=== PATIENT | male | born 1955 | race African-American/Black ===

== ENCOUNTER 2019-08-05 00:15 | Emergency (ER) | payer OTHER, SELFPAY ==
--- NOTE | 2019-08-05 00:17 | ED.ABDPAIN ---
HPI - Abdominal Pain General Chief Complaint: Abdominal Pain Stated Complaint: intermittent right upper quadrant pain/chills Time Seen by Provider: 08/05/19 00:17 Source: patient and family Mode of arrival: Wheelchair Limitations: no limitations History of Present Illness HPI narrative: 63-year-old male nonsmoker with history of diabetes and hypertension presents with his in the chief complaint of episodes of worsening right upper quadrant pain. He states that the episodes last upwards of 1 to minutes and are without provocation or palliation. He had been having some diarrhea last week but then has been constipated for the past day or 2. He did have a bowel movement this morning but states it was very hard and a small amount. He has had no nausea, vomiting. He has had no fever or chills. He denies runny nose, sore throat or cough. He has no chest pain, shortness of breath or weakness. MD complaint: abdominal pain Onset (ago): day(s) Pain Consistency: intermittent Location: RUQ Severity: moderate Quality: cramping Radiation: none Relieving factors: nothing Exacerbating factors: nothing Associated symptoms: denies other symptoms Related Data Previous Rx's Medication Instructions Recorded azithromycin [Zithromax] 250 mg PO Q DAY #6 tab 04/03/16 hyoscyamine sulfate 0.125 mg PO BID-QID PRN #20 tab 08/05/19 Allergies Allergy/AdvReac Type Severity Reaction Status Date / Time lisinopril Allergy Severe Anaphylaxis Verified 08/05/19 00:33 Penicillins [PENICILLINS] Allergy Intermediate TREMORS Unverified 09/06/17 12:17 Review of Systems Constitutional Constitutional: Denies chills, Denies fatigue, Denies fever(s), Denies frequent falls, Denies lethargy and Denies weakness Eyes Eyes: Denies change in vision, Denies eye discharge, Denies irritation and Denies loss of vision ENT Ears, Nose, Mouth, and Throat: Denies change in voice, Denies dizziness, Denies neck pain, Denies sore throat and Denies throat swelling Cardiovascular Cardiovascular: Denies chest pain, Denies irregular heart rhythm, Denies lightheadedness, Denies palpitations, Denies dyspnea, Denies dyspnea on exertion and Denies orthopnea Respiratory Respiratory: Denies cough, Denies dyspnea, Denies dyspnea on exertion and Denies wheezing Gastrointestinal Gastrointestinal: Reports abdominal pain, Reports change in bowel habits, Denies diarrhea, Denies nausea and Denies vomiting Genitourinary Genitourinary: Denies hematuria, Denies flank pain, Denies urinary incontinence and Denies urinary urgency Musculoskeletal Musculoskeletal: Denies back pain, Denies muscle weakness, Denies neck pain, Denies numbness and Denies tingling Integumentary/Breasts Skin/Breast: Denies pruritus, Denies erythema, Denies rash and Denies wounds Neurologic Neurologic: Denies behavioral changes, Denies confusion, Denies dizziness, Denies frequent falls, Denies loss of vision, Denies numbness, Denies tingling and Denies weakness Psychiatric Psychiatric: Denies anxiety, Denies behavioral changes, Denies confusion, Denies depression, Denies homicidal ideation and Denies suicidal ideation Endocrine Endocrine: Denies fatigue, Denies flushing and Denies palpitations Hematologic/Lymphatic Hematologic/Lymphatic: Denies easy bruising Allergic/Immunologic Allergic/Immunologic: Denies urticaria, Denies throat swelling and Denies wheezing Patient History Social History Smoking Status: Never smoker Smoking Status: Never smoker Substance Use Type: does not use Exam Narrative Exam Narrative: GENERAL: [63] year old patient appears stated age. Well-nourished, well-developed patient, in mild distress. HEAD: Atraumatic. Normocephalic. EYES: Pupils equal round and reactive. Extraocular motions intact. No scleral icterus. No injection or drainage. ENT: Nose without bleeding, purulent drainage. Throat without erythema, tonsillar hypertrophy or exudate. Airway patent. NECK: Trachea midline. Non tender CARDIOVASCULAR: Regular rate and rhythm without murmurs, gallops, or rubs. RESPIRATORY: Clear to auscultation. Breath sounds equal bilaterally. No wheezes, rales, or rhonchi. GASTROINTESTINAL: Abdomen soft, non-tender, nondistended. EXTREMITIES: No edema or joint tenderness. BACK: Nontender without deformity or crepitance. No flank tenderness. NEURO: AOx3. SKIN: No rash or erythema of visible areas Initial Vital Signs Initial Vital Signs: Vital Signs Pulse Rate 82 08/05/19 00:26 Respiratory Rate 18 08/05/19 00:26 Blood Pressure 156/89 H 08/05/19 00:26 Pulse Oximetry 100 08/05/19 00:26 Course Orders Ordered: ED Orders 08/05/19 00:27 XR acute abdomen series Stat 08/05/19 00:33 Complete Blood Count AUTO DIFF Stat Comprehensive Metabolic Panel Stat Lipase Stat 08/05/19 01:14 CT abdomen pelvis w con Stat 08/05/19 02:21 US abdomen limited Stat Sodium Chloride (Normal Saline 0.9%) 1,000 mls @ 150 mls/hr IV CONT VISHNU Last Admin: 08/05/19 00:56 Dose: 150 mls/hr Documented by: REMIGIO Vital Signs Vital signs: Vital Signs - 8 hr 08/05/19 00:26 08/05/19 00:28 08/05/19 02:04 Temperature 97.6 F Pulse Rate 82 70 Respiratory Rate 18 15 Blood Pressure 156/89 H Blood Pressure [Left Arm] 132/88 Pulse Oximetry 100 97 MDM - Abdominal Pain Lab Data Result diagrams: 08/05/19 00:33 08/05/19 00:33 Labs: Lab Results 08/05/19 08/05/19 Range/Units 00:33 00:33 WBC 8.0 (4.5-11.0) X10^3/uL RBC 4.68 (4.5-5.9) X10^6/uL Hgb 12.1 L (13.5-17.5) g/dL Hct 37.0 L (41-53) % MCV 79.2 L (80-100) fL MCH 25.9 L (26-34) PG MCHC 32.7 (30-36) % RDW 17.5 H (11.6-14.8) % Plt Count 223 (150-400) X10^3/uL Neut % (Auto) 63.1 (50-75) % Lymph % (Auto) 27.2 (25-40) % [place] % (Auto) 7.0 (3-14) % Eos % (Auto) 2.0 (2-4) % Baso % (Auto) 0.7 (0-2) % Neut # (Auto) 5000 (1635-5420) /uL Lymph # (Auto) 2200 (6236-3612) /uL [place] # (Auto) 600 (0-900) /uL Eos # (Auto) 200 (0-450) /uL Baso # (Auto) 100 (0-100) /uL Sodium 139 (137-145) mmol/L Potassium 4.5 (3.4-5.1) mmol/L Chloride 103 (98-107) mmol/L Carbon Dioxide 29 (22-32) mmol/L BUN 14 (9-20) mg/dL Creatinine 1.40 H (0.66-1.25) mg/dL Estimated GFR 51.2 L (>60) mL/min BUN/Creatinine Ratio 10.0 (6-22) Glucose 136 H (80-110) mg/dL Calcium 10.0 (8.4-10.2) mg/dL Total Bilirubin 1.0 (0.2-1.3) mg/dL AST 81 H (17-59) IU/L ALT 70 H (<50) IU/L Alkaline Phosphatase 80 (38-126) U/L Total Protein 8.8 H (6.3-8.2) g/dL Albumin 4.5 (3.5-5.0) g/dL Globulin 4.3 H (1.7-4.1) g/dL Albumin/Globulin Ratio 1.0 (1.0-2.8) Lipase 232 (23-300) U/L Point of care testing: Urine Dip Bedside Urine Glucose Negative Bedside Urine Bilirubin - Negative Bedside Urine Ketone - Negative Urine Specific [place] 1.005 Bedside Urine Occult Blood - Negative Bedside Urine pH 7.5 Bedside Urine Protein +/- 15 Bedside Urine Urobilinogen +/- 1mg Bedside Urine Nitrite - Negative Bedside Urine Leukocytes - Negative Esterase Imaging Data Abdominal x-ray: Attestation: I personally reviewed and interpreted this imaging study as follows: My Impression: large stool burden in R abdomen and nonspecific bowel gas in left abdomen CT scan - abdomen/pelvis: Radiologist's Impression: Slight thickening of the urinary bladder Mild to moderate fecal retention Fluid-filled small bowel loops with slightly thickened wall at upper diameter but no onur distension may be related to slight enteritis US - abdomen: Radiologist's Impression: Contracted gallbladder, no stones MDM Narrative Medical decision making narrative: Patient with colicky type right-sided abdominal pain and recent history of diarrhea and now constipation. X-rays suggest large stool burden. CT shows no obstruction but suggestion of enteritis. Gallbladder ultrasound shows no surgical findings. Labs are very reassuring. Patient feels tremendous relief after the above-stated therapies Patient given return precautions and has had his questions answered to his apparent satisfaction Discharge Plan Departure Patient Disposition: Home Clinical Impression: Enteritis Abdominal pain Qualifiers: Abdominal location: right upper quadrant Qualified Code(s): R10.11 - Right upper quadrant pain Instructions: DI for Abdominal Pain-Adult Activity Restrictions/Additional Instructions: 1. Drink plenty of fluids with frequent small sips. 2. For the next 24 hours a clear liquid diet is advised. After that please employ a brat diet which would include bananas, rice, apples, toast. 3. Please take medications as directed. 4. Please follow-up with your doctor in the next 1-2 days. Call the office for an appointment. 5. Please return to the emergency Department for any worsening or persistent symptoms, such as increasing pain or fever. Prescriptions: New hyoscyamine sulfate 0.125 mg tablet 0.125 mg PO BID-QID PRN (Reason: dyspepsia) Qty: 20 RF: 0 No Action azithromycin [Zithromax] 250 MG tablet 250 mg PO Q DAY Qty: 6 RF: 0 Referrals: Marta Austin [Primary Care Provider] -
[2019-08-05 00:26] VITALS: BP 156/89; PULSE 82; RESP 18; O2SAT 100; BMI 31.7
--- NOTE | 2019-08-05 00:27 | DI.RAD.S_ITS ---
PROCEDURE: XR ACUTE ABDOMEN SERIES INDICATIONS: Abdominal pain TECHNIQUE: One view chest and two views of the abdomen were acquired. COMPARISON: [facility], CT, CT ABDOMEN PELVIS W CON, 08/05/2019, 0:20. FINDINGS: Surgical changes and devices: None. Chest: Lungs are clear. Heart size is normal. No pleural effusions. No pneumoperitoneum. Abdomen: Bowel gas pattern is mildly abnormal, with a small bowel loop over the left midabdomen showing gas distention to the degree that ileus or obstruction could explain appearance. No suspicious calcifications. Visualized solid organ contours appear normal. Bones: No suspicious bony lesions. IMPRESSION: Suspect small bowel ileus or obstruction, early, as cause of small bowel prominence over the left midabdomen. Please also refer to CT report from same date. Dictated by: Phillip Epstein M.D. on 08/05/2019 at 8:24 Approved by: Phillip Epstein M.D. on 08/05/2019 at 8:26
[2019-08-05 00:28] VITALS: TEMP 36.4
[2019-08-05 00:47] LABS: Add Manual Diff / Slide Review NO; Basophils Absolute Auto 100 /uL (0-100); Basophils Percent Auto 0.7 % (0-2); Eosinophils Absolute Auto 200 /uL (0-450); Hemoglobin 12.1 g/dL (13.5-17.5); Lymphocytes Absolute Auto 2200 /uL (1100-4500); Lymphocytes Percent Auto 27.2 % (25-40); Mean Corpuscular HGB Conc 32.7 % (30-36); Mean Corpuscular Hemoglobin 25.9 PG (26-34); Mean Corpuscular Volume 79.2 fL (80-100); Monocytes Absolute Auto 600 /uL (0-900); Neutrophils Absolute Auto 5000 /uL (1500-7000); Neutrophils Percent Auto 63.1 % (50-75); Platelet Count 223 X10^3/uL (150-400); Red Blood Cell Count 4.68 X10^6/uL (4.5-5.9); Red Cell Distribution Width 17.5 % (11.6-14.8)
[2019-08-05 00:56] LABS: Alanine Aminotransferase 70 IU/L (<50); Albumin 4.5 g/dL (3.5-5.0); Alkaline Phosphatase 80 U/L (38-126); Aspartate Aminotransferase 81 IU/L (17-59); Blood Urea Nitrogen 14 mg/dL (9-20); Carbon Dioxide 29 mmol/L (22-32); Chloride 103 mmol/L (98-107); Estimated Glomerular Filt Rate 51.2 mL/min (>60); Globulin 4.3 g/dL (1.7-4.1); Glucose 136 mg/dL (80-110); HEMOLYSIS < 15 (0-50); Lipase 232 U/L (23-300); Potassium 4.5 mmol/L (3.4-5.1); Sodium 139 mmol/L (137-145); Total Protein 8.8 g/dL (6.3-8.2)
[2019-08-05] MEDS: SODIUM CHLORIDE 0.9% 1,000 ML 150 ML IV (00:56)
--- NOTE | 2019-08-05 01:14 | DI.CT.S_ITS ---
PROCEDURE: CT ABDOMEN PELVIS W CON INDICATIONS: abdominal pain, N/V, no BM TECHNIQUE: After the administration of intravenous contrast, 5 mm thick sections acquired from the diaphragm to the symphysis. 5 mm coronal and sagittal reformats were acquired. For radiation dose reduction, the following was used: automated exposure control, adjustment of mA and/or kV according to patient size. COMPARISON: None. FINDINGS: Image quality: Excellent. ABDOMEN: Lung bases: Lung bases are clear. Heart size is normal. Solid organs: Liver is normal in size and enhancement. Gallbladder is unremarkable. Biliary system is non dilated. Pancreas enhances normally. Spleen is normal in size and enhancement. No adrenal nodules. Kidneys demonstrate normal size and enhancement, without hydronephrosis. Peritoneum and bowel: The proximal small bowel loops are in general prominent and fluid-filled. There is a small bowel loop that measures up to 3.1 cm. Distal small bowel is normal caliber. Findings may potentially represent a partial small bowel obstruction. Normal appendix. Colon is unremarkable. No free air, free fluid, or abscess cavity. Nodes and vessels: No retroperitoneal or mesenteric adenopathy by size criteria. Aorta and inferior vena cava are normal in size. Miscellaneous: No ventral hernias. PELVIS: Genitourinary: Mild diffuse bladder wall thickening. Miscellaneous: No inguinal hernias or adenopathy. Bones: No suspicious bony lesions. No vertebral body compression fractures. IMPRESSION: 1. Question partial small bowel obstruction versus finding secondary to gastroenteritis. Comment: Preliminary preliminary interpretation provided by [facility]. Dictated by: Grupo Lewis M.D. on 08/05/2019 at 7:47 Approved by: Grupo Lewis M.D. on 08/05/2019 at 7:56
[2019-08-05 02:04] VITALS: BP 132/88; PULSE 70; RESP 15; O2SAT 97
--- NOTE | 2019-08-05 02:21 | DI.US.S_ITS ---
PROCEDURE: US ABDOMEN LIMITED INDICATIONS: RUQ PAIN, ELEVATED LFTS,THICKENED GB WALL ON CT TECHNIQUE: Real-time focused scanning was performed of the abdomen, with image documentation. COMPARISON: None. FINDINGS: The liver is enlarged in size at 20.3 cm craniocaudad. It is fatty infiltrated as indicated by generalized increased echotexture. No intrahepatic biliary distention is present. The gallbladder appears normal, and is mildly contracted. The common duct measures 5 mm. IMPRESSION: Hepatomegaly with moderate hepatic steatosis, no sign of acute cholecystitis or biliary obstruction. Dictated by: Phillip Epstein M.D. on 08/05/2019 at 8:26 Approved by: Phillip Epstein M.D. on 08/05/2019 at 8:28
== END 2019-08-05 04:05 | disposition home or self-care (01) ==
PROVIDERS: Emergency Provider Emergency Medicine; PCP Internal Medicine
DX: K52.9 Noninfective gastroenteritis and colitis, unspecified (principal); R10.11 Right upper quadrant pain; E11.9 Type 2 diabetes mellitus without complications; I10 Essential (primary) hypertension
CPT/HCPCS: 36415; 74022; 74177; 76705; 80053; 81003; 83690; 85025; 96360; 96361; 99284; 99285; Q9967

== ENCOUNTER → 2022-07-25 12:10 | Outpatient (CLI) | payer MEDICARE, OTHER, SELFPAY ==
--- NOTE | 2022-07-25 | DI.RAD.S_ITS ---
PROCEDURE: XR ELBOW LT MIN 3V INDICATIONS: Other specified arthritis, left elbow TECHNIQUE: 3 views of the elbow were acquired. COMPARISON: None. FINDINGS: Bones: No acute fractures or dislocations. No suspicious bony lesions. Joint space narrowing present of the radiocapitellar and ulnar trochlear articulations. Subchondral cystic change and spurring also likely demonstrated. Soft tissues: No elbow joint effusion. No suspicious soft tissue calcifications. IMPRESSION: Degenerative changes of the left elbow. No acute fracture identified. If symptoms persist, follow-up radiographs and/or CT or MRI may be helpful for further evaluation. Dictated by: Terrence Nicolas M.D. on 07/25/2022 at 15:30 Approved by: Terrence Nicolas M.D. on 07/25/2022 at 15:35
== END ==
PROVIDERS: PCP Family Medicine; Referring Provider Family Medicine; Visit Provider Family Medicine
DX: M13.822 Other specified arthritis, left elbow (principal)
CPT/HCPCS: 73080

== ENCOUNTER → 2023-06-26 09:04 | Outpatient (CLI) | payer MEDICARE, OTHER, SELFPAY ==
--- NOTE | 2023-06-26 09:06 | DI.US.S_ITS ---
PROCEDURE: US ABDOMEN LIMITED INDICATIONS: Abnormal levels of other serum enzymes TECHNIQUE: Real-time scanning was performed of the abdominal and retroperitoneal organs, with image documentation. COMPARISON: [facility], , US ABDOMEN LIMITED, 08/05/2019, 1:58. FINDINGS: Liver: Measures 17.8 cm in length. Upper limits of normal in size. Increased in echogenicity. Portal vein demonstrates hepatopetal flow. Gallbladder: Nondilated. No stones or sludge. Normal gallbladder wall thickness. No pericholecystic fluid. Negative sonographic Cm's sign. Biliary ducts: Intrahepatic bile ducts are non-dilated. Extrahepatic bile duct caliber measures 5 mm. Normal is 6-7 mm or less in diameter, or 10 mm or less post-cholecystectomy. Pancreas: Visualized portions of the pancreas are sonographically normal. Tail is not well seen due to bowel gas. Right kidney: No hydronephrosis. Measures 12.6 cm in length. Miscellaneous: No free abdominal fluid. IMPRESSION: 1. Increased hepatic echogenicity most consistent with hepatic steatosis. Other forms of hepatocellular disease could have similar appearance. 2. No acute cholecystitis. No gallstones. Dictated by: Jaime Alaniz M.D. on 06/26/2023 at 11:37 Approved by: Jaime Alaniz M.D. on 06/26/2023 at 11:41
== END ==
PROVIDERS: PCP Family Medicine; Referring Provider Nurse Practitioner Family; Visit Provider Nurse Practitioner Family
DX: R74.8 Abnormal levels of other serum enzymes (principal)
CPT/HCPCS: 76705

== ENCOUNTER → 2023-08-14 14:52 | Outpatient (CLI) | payer MEDICARE, OTHER, SELFPAY ==
--- NOTE | 2023-08-14 | DI.NM.S_ITS ---
PROCEDURE: NM EXERCISE TREADMILL NON NUC COMPARISON: None. INDICATIONS: Chest pain FINDINGS: Total exercise time was 6 minutes and 1 seconds. 6.9 METS was obtained. Maximum heart rate was 165 bpm which is 108% of maximum predicted heart rate. Maximum blood pressure was 200/100 resulting in a hypertensive response to exercise. Double product was [id number]. Occasional PVCs were noted at the beginning of the stress portion but resolved with higher levels of stress. No dysrhythmias were noted no ectopic beats present in the rest phase. Upsloping ST depression present at peak stress. No chest pain nor anginal symptoms voiced. Test was terminated secondary to fatigue. IMPRESSION: 1. No ischemia noted on this exercise treadmill stress test. 2. Average exercise tolerance. 3. Hypertensive response to exercise. Dictated by: Murtaza Lopez M.D. on 08/15/2023 at 13:01 Approved by: Murtaza Lopez M.D. on 08/15/2023 at 13:04
--- NOTE | 2023-08-14 | DI.RAD.S_ITS ---
PROCEDURE: XR CHEST 2V INDICATIONS: Chest pain TECHNIQUE: 2 views of the chest were acquired. COMPARISON: [facility], , CHEST 2 VIEW, 04/03/2016, 9:29. FINDINGS: Surgical changes and devices: Surgical anchors are seen in the right humeral head. Lungs and pleura: Lungs are clear. No pleural effusions or pneumothorax. Mediastinum: Mediastinal contours are normal. Heart size is normal. Bones and chest wall: No suspicious bony abnormalities. Soft tissues appear unremarkable. IMPRESSION: No acute cardiopulmonary abnormality is seen. Approved by: Terrence Saldana M.D. on 08/14/2023 at 16:47
== END ==
PROVIDERS: PCP Family Medicine; Referring Provider Nurse Practitioner Family; Visit Provider Nurse Practitioner Family
DX: R07.89 Other chest pain (principal); R03.0 Elevated blood-pressure reading, without diagnosis of hypertension
CPT/HCPCS: 71046; 93017